=== PATIENT | female | born 1975 | race American Indian/Alaskan Native ===

== ENCOUNTER 2017-06-11 13:31 | Emergency (ER) | payer MEDICAID, OTHER ==
[2017-06-11 14:01] VITALS: BP 129/81
--- NOTE | 2017-06-11 14:46 | XRay Report ---
TIBIA FIBULA RADIOGRAPHS INDICATION: Fall, right lower leg pain. COMPARISON: None similar. FINDINGS: AP and lateral views suggest slightly comminuted mid tibial shaft fracture with cortical offset/displacement of approximately 4 mm anteroposterior. Subtle prior screw tract lucencies in this location also noted on the lateral view. Frontal radiograph may though represent some callus formation in this region. Numerous surgical clips also noted posteriorly in the calf and the knee. Medial knee degenerative changes with narrowing and spurring. Intact ankle articulation. Mild diffuse lower leg soft tissue swelling/edema not excluded. CONCLUSION: 1. Right mid tibial shaft fracture, not excluded acute on chronic, as described. 2. Other findings, including postsurgical and knee degenerative changes, as described. Thank you for the opportunity to participate in this patient's care.
[2017-06-11] MEDS ORDERED: MOTRIN PO ONE (16:02)
--- NOTE | 2017-06-11 22:45 | Emergency Department Report ---
Entered by CIPRIANO BLACK, acting as scribe for SANJANA DAMON NP. ED Lower Extremity HPI - General Chief Complaint: Extremity Injury, Lower Stated Complaint: RT LEG INJURY Time Seen by Provider: 06/11/17 14:46 Source: patient Mode of arrival: Wheelchair Limitations: Physical Limitation - History of Present Illness Initial Comments: This a 35 year old female nontoxic, well nourished in appearance, no acute signs of distress presents with injury to right LE for 3 weeks. Patient states she tripped and fell running up the stairs, where she fell on the edge of the stairs. She rates pain a 7/10 in severity and describes pain as aching. She notes she is able to partially bear weight to right LE. Patient states she used keya wrap, OTC Tylenol and Motrin without relief. Patient denies swelling, numbness, tingling, deformity, chest pain, shortness of breath, nausea, vomiting , erythema, swelling, and deformity. NKDA. WATTS Complaint: leg injury, fall -: week(s) (3) Injury: Leg: Right (lower leg ) Type of Injury: other (fall) Place: home Severity: moderate Severity scale (0 -10): 7 Improves With: NSAID Worsens With: weight bearing, movement Context: fall (tripped up the stairs) Associated Symptoms: able to partially bear weight, ambulatory. denies: snap/ pop sensation, swelling, numbness, tingling, unable to bear weight Treatments Prior to Arrival: other (OTC tylenol and motrin) - Related Data Previous Rx's Medication Instructions Recorded Last Taken Type Ibuprofen [Motrin 600 MG tab] 600 mg PO Q8H PRN #30 tablet 06/11/17 Unknown Rx Allergies Allergy/AdvReac Type Severity Reaction Status Date / Time No Known Allergies Allergy Verified 06/11/17 14:01 ED Review of Systems Comment: All other systems reviewed and negative Constitutional: denies: chills, fever, weakness Eyes: denies: eye pain, eye discharge, vision change ENT: denies: ear pain, throat pain Respiratory: denies: cough, shortness of breath, wheezing Cardiovascular: denies: chest pain, palpitations Endocrine: no symptoms reported Gastrointestinal: denies: abdominal pain, nausea, vomiting, diarrhea Genitourinary: denies: urgency, dysuria, discharge Musculoskeletal: denies: back pain, joint swelling, arthralgia Skin: denies: rash, lesions Neurological: denies: headache, weakness, paresthesias Psychiatric: denies: anxiety, depression Hematological/Lymphatic: denies: easy bleeding, easy bruising ED Past Medical Hx - Past Medical History Previous Medical History?: No Hx Hypertension: No Hx Congestive Heart Failure: No Hx Diabetes: No Hx Deep Vein Thrombosis: No Hx Renal Disease: No Hx Sickle Cell Disease: No Hx Seizures: No Hx Asthma: No Hx COPD: No Hx HIV: No - Surgical History Past Surgical History?: Yes Additional Surgical History: right leg surgery - Social History Smoking Status: Current Every Day Smoker Substance Use Type: Alcohol - Medications Home Medications: Home Medications Medication Instructions Recorded Confirmed Last Taken Type Ibuprofen [Motrin 600 MG tab] 600 mg PO Q8H PRN #30 tablet 06/11/17 Unknown Rx ED Physical Exam - General Limitations: Physical Limitation General appearance: alert, in no apparent distress - Head Head exam: Present: atraumatic, normocephalic, normal inspection - Eye Eye exam: Present: normal appearance, PERRL, EOMI. Absent: scleral icterus, conjunctival injection, nystagmus, periorbital swelling, periorbital tenderness - ENT ENT exam: Present: normal exam, normal orophraynx, mucous membranes moist, TM's normal bilaterally, normal external ear exam - Neck Neck exam: Present: normal inspection, full ROM. Absent: tenderness, meningismus - Respiratory Respiratory exam: Present: normal lung sounds bilaterally. Absent: respiratory distress, wheezes, rales, rhonchi, stridor - Cardiovascular Cardiovascular Exam: Present: regular rate, normal rhythm, normal heart sounds. Absent: systolic murmur, diastolic murmur, rubs, gallop - GI/Abdominal GI/Abdominal exam: Present: soft, normal bowel sounds. Absent: distended, tenderness, guarding, rebound, rigid, diminished bowel sounds - Rectal Rectal exam: Present: deferred - Extremities Exam Extremities exam: Present: normal inspection, full ROM, tenderness, normal capillary refill. Absent: pedal edema, joint swelling, calf tenderness - Expanded Lower Extremity Exam Right Hip exam: Present: normal inspection, full ROM, external rotation, internal rotation, pelvic stability. Absent: tenderness, swelling, abrasion, laceration , ecchymosis, deformity, crepidus, dislocation, erythema, shortening Upper Leg exam: Present: normal inspection, full ROM. Absent: tenderness, swelling, abrasion, laceration, ecchymosis, deformity, crepidus, dislocation, erythema Knee exam: Present: normal inspection, full ROM, full knee extension. Absent: tenderness, swelling, abrasion, laceration, ecchymosis, deformity, crepidus, dislocation, erythema, effusion, pain w/ pronation/supination, posterior draw sign, pain/laxity with valgus, pain/laxity with varus Lower Leg exam: Present: normal inspection, full ROM, tenderness. Absent: swelling, abrasion, ecchymosis, deformity, crepidus, dislocation, erythema, palpable cord, Erinn's sign Ankle exam: Present: normal inspection, full ROM. Absent: tenderness, swelling , abrasion, laceration, ecchymosis, deformity, crepidus, dislocation, erythema, anterior draw sign Foot/Toe exam: Present: normal inspection, full ROM. Absent: tenderness, swelling, abrasion, laceration, ecchymosis, deformity, crepidus, dislocation, erythema, amputation, puncture wound, foreign body, calcaneal tenderness, tenderness at base of 5th metatarsal, nail avulsion, subungual hematoma Neuro vascular tendon exam: Present: no vascular compromise. Absent: pulse deficit, abnormal cap refill, motor deficit, sensory deficit, tendon deficit, extremity cold to touch, pallor, abnormal 2-point discrimination, decreased fine /light touch, foot drop, peroneal nerve deficit, significant pain with passive ROM of distal joint Gait: Positive: observed and limited by pain - Back Exam Back exam: Present: normal inspection, full ROM. Absent: tenderness, CVA tenderness (R), CVA tenderness (L), muscle spasm, paraspinal tenderness, vertebral tenderness, rash noted - Neurological Exam Neurological exam: Present: alert, oriented X3, CN II-XII intact, normal gait, reflexes normal - Psychiatric Psychiatric exam: Present: normal affect, normal mood - Skin Skin exam: Present: warm, dry, intact, normal color. Absent: rash ED Course Vital Signs 06/11/17 06/11/17 13:55 16:27 Temperature 98.1 F Pulse Rate 94 H Respiratory 17 16 Rate Blood Pressure 129/81 O2 Sat by Pulse 100 Oximetry - Reevaluation(s) Reevaluation #1: 06/11/17 16:54 Patient is able speak full sentences with no signs of distress. Reevaluation #2: 06/11/17 17:00 post-splint exam; patient able to move toes. Patient denies any numbness or tingling. Denies splint being too tight. Vascular intact. Normal capillary refill less than 2 seconds. - Consultations Consultation #1: 06/11/17 16:54 Dr. Sanford has been consulted and reviewed x-ray agrees to plan of care the ED. Consultation #2: 06/11/17 16:54 Dr. Gupta has been consulted about patient and x-ray findings. Instructed to have the patient on a long leg posterior splint above the knee with the knee slightly flexed. Was also instructed to have the patient follow-up in 3-5 days with him. ED Lower Extremity MDM - Medical Decision Making ED course; this is a 41-year-old female that presents with right mid tibial shaft fracture/displacement approximately 4 mm 1- patient was examined myself. She is stable. X-ray has been obtained that indicates a fracture to the shaft fibula mid. Patient was notified of x-ray findings with no further questions nor by the patient. 2- patient received ibuprofen 800 mg by mouth. Patient received a long leg splint above the knee and any being flex slightly. Patient also received crutches at the time of discharge and was educated by RN. 3- patient received ibuprofen 600 mg by mouth at discharge. 4- Dr. Gupta/Dr. Wade has been consulted and reviewed x-ray. 5- patient was instructed not to put any weight to her extremity. 6- At time time of discharge, the patient does not seem toxic or ill in appearance. No acute signs of distress noted. Patient agrees to discharge treatment plan of care. No further questions noted by the patient. [id number] exam; patient able to move toes. Patient denies any numbness or tingling. Denies splint being too tight. Vascular intact. Normal capillary refill less than 2 seconds. ED Disposition Clinical Impression: Fx shaft fibula-closed Qualifiers: Encounter type: initial encounter Fracture morphology: unspecified fracture morphology Laterality: right Qualified Code(s): S82.401A - Unspecified fracture of shaft of right fibula, initial encounter for closed fracture Disposition: DC-01 TO HOME OR SELFCARE Is pt being admited?: No Does the pt Need Aspirin: No Condition: Stable Instructions: Leg Fracture (ED), Crutch Instructions (ED), Splint Care (ED), Ibuprofen (By mouth) Additional Instructions: Did not place any weight extremity. Follow-up with Dr. Gupta in 3-5 days or symptoms such as numbness, tingling, unimproved extremity, fever, chills, joint swelling, or worsening symptoms return to emergency room as soon as possible. Take ibuprofen as prescribed for pain as needed Prescriptions: Ibuprofen [Motrin 600 MG tab] 600 mg PO Q8H PRN #30 tablet PRN Reason: Pain Referrals: PRIMARY CAREMD [Primary Care Provider] - 3-5 Days STU GUPTA MD [Staff Physician] - 3-[address] [facility] [Outside] - 3-5 Days [facility] [Outside] - 3-5 Days Forms: Work/School Release Form(ED) This documentation as recorded by the SOFIA bull PEARL,accurately reflects the service I personally performed and the decisions made by NELSON butler MARTIN, PRANVA.
== END 2017-06-11 17:11 | disposition home or self-care (01) ==
LOC: ED 13:31
DX: S82.401A Unspecified fracture of shaft of right fibula, initial encounter for closed fracture (principal); F17.200 Nicotine dependence, unspecified, uncomplicated; W10.8XXA Fall (on) (from) other stairs and steps, initial encounter; Y93.89 Activity, other specified; Y99.8 Other external cause status; Y92.89 Other specified places as the place of occurrence of the external cause

== ENCOUNTER 2018-02-12 10:05 | Outpatient (CLI) | payer OTHER ==
--- NOTE | 2018-02-12 16:30 | Cat Scan Report ---
FINAL REPORT PROCEDURE: CT LOWER EXTREMITY RT WO CON TECHNIQUE: Computerized axial tomography of the RIGHT lower leg was performed without contrast. HISTORY: Unspecified physeal fracture of lower end of right tibia COMPARISON: No prior studies are available for comparison. FINDINGS: There is a oblique fracture visualized through the junction of the middle and distal 3rd of the right tibia. There is callus formation present although I do not see any evidence of bony union. I cannot exclude fibrous union. The distal portion of the tibia is displaced posteriorly approximately 4.8 millimeters. The fibula appears intact. 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 Large calcaneal spur visualized at the plantar fascia insertion site, small to moderate-sized spur at the Achilles tendon insertion site. Tricompartmental osteoarthritic changes are present, mild in the patellar femoral joint space moderate in the medial and lateral compartment of the knee. There is a large calcified loose body posterior aspect of the medial compartment of the knee measuring 2.1 by 0.85 centimeters. IMPRESSION: Oblique fracture junction middle and distal 3rd of the tibia without evidence of bony union. The distal fragment is displaced approximately 4.8 millimeters posteriorly. Fibula appears intact. No other fractures are seen. Large calcified loose body posterior aspect medial compartment of the knee. 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 Left calcaneal spurs are present as described. There appears to be disuse osteopenia involving the ankle and visualized portion of the foot.
== END 2018-02-12 10:06 | disposition home or self-care (01) ==
LOC: CT 10:05
PROVIDERS: ATTEND Student in an Organized Health Care Education/Training Program
DX: S89.101 Unspecified physeal fracture of lower end of right tibia (principal); M17.11 Unilateral primary osteoarthritis, right knee; M77.31 Calcaneal spur, right foot; M77.32 Calcaneal spur, left foot; M85.871 Other specified disorders of bone density and structure, right ankle and foot; X58.XXXD Exposure to other specified factors, subsequent encounter